=== PATIENT | female | born 1980 | race Caucasian/White ===

== ENCOUNTER 2019-02-22 09:12 | Emergency (ER) | payer OTHER ==
[2019-02-22] MEDS ORDERED: Bacitracin Zinc 1 Packet ONE (09:21)
[2019-02-22] MEDS ORDERED: Lidocaine 1% 20 ML MDV ONE (09:21)
[2019-02-22] MEDS ORDERED: Adacel (T-DAP) 0.5 ML SYRINGE ONE (09:21)
== END 2019-02-22 10:05 | disposition home or self-care (01) ==
LOC: SCSER 09:12
DX: S61.217A Laceration without foreign body of left little finger without damage to nail, initial encounter (principal); D50.0 Iron deficiency anemia secondary to blood loss (chronic); Z79.899 Other long term (current) drug therapy; W26.8XXA Contact with other sharp object(s), not elsewhere classified, initial encounter
CPT/HCPCS: 12001; 90471; 90715; J2001

== ENCOUNTER 2019-08-24 10:18 | Outpatient (CLI) | payer OTHER ==
--- NOTE | 2019-08-24 11:25 | RAD ---
AP PELVIS: HISTORY: Back pain. FINDINGS: Bony pelvis is unremarkable. Both hips are unremarkable. An IUD overlies the mid pelvis. IMPRESSION: No acute finding. POS: [facility]
--- NOTE | 2019-08-24 11:32 | RAD ---
SUPINE ABDOMEN: HISTORY: Back pain. Abdominal pain. FINDINGS: The bowel gas pattern is unremarkable. There is scattered stool and gas in the colon. Small bowel gas pattern is normal. IUD overlies the mid pelvis. There is a focal density overlying the right upper quadrant. This is obscured by overlying stool but could potentially represent a gallstones. Recommend clinical correlation and consider gallbladder ult rasound as indicated. No other abnormal calcification identified. IMPRESSION: 1. Unremarkable bowel gas pattern. 2. Focal density overlying the right upper quadrant, question gallstone. Correlate clinically. POS: [facility]
--- NOTE | 2019-08-24 11:37 | MMO ---
Bilateral MAMMO Bilat Screen [facility]. CLINICAL HISTORY: Patient is 39 years old and is seen for screening. The patient has the following family history of breast cancer: great grandmother, at age 70. The patient has no personal history of cancer. VIEWS: The views performed were: bilateral craniocaudal with tomosynthesis; bilateral mediolateral oblique with tomosynthesis; and bilateral exaggerated craniocaudal with tomosynthesis. FILMS COMPARED: The present examination has been compared to prior imaging studies performed at [facility] on 05/14/2012 and 05/01/2018. This study has been interpreted with the assistance of computer-aided detection. MAMMOGRAM FINDINGS: The breasts are heterogeneously dense, which could obscure a lesion on mammography. There are no suspicious masses, suspicious calcifications, or new areas of architectural distortion. IMPRESSION: THERE IS NO MAMMOGRAPHIC EVIDENCE OF MALIGNANCY. A ROUTINE FOLLOW-UP MAMMOGRAM IN 1 YEAR IS RECOMMENDED. THE RESULTS OF THIS EXAM WERE SENT TO THE PATIENT. ACR BI-RADS Category 1 - Negative MAMMOGRAPHY NOTE: 1. A negative mammogram report should not delay a biopsy if a dominant of clinically suspicious mass is present. 2. Approximately 10% to 15% of breast cancers are not detected by mammography. 3. Adenosis and dense breasts may obscure an underlying neoplasm. Reported by: ABNER MITCHELL MD Electonically Signed: [id number]
--- NOTE | 2019-08-24 11:37 | RAD ---
Frontal, lateral, and swimmer's lateral view of the thoracic spine: 08/24/2019 COMPARISON: None HISTORY: Pain FINDINGS: No fracture or dislocation. Thoracic pedicles appear intact on frontal imaging. Vertebral b ruby height and alignment appears normal within the thoracic spine on the lateral view. The cervicothoracic junction appears unremarkable on the provided swimmer's view. Frontal imaging demonstrates a minimal degree of upper thoracic spine levoscoliosis. IMPRESSION: No acute osseous abnormality.
--- NOTE | 2019-08-24 11:40 | RAD ---
LUMBAR SPINE 3 VIEWS: HISTORY: Low back pain. FINDINGS: The lumbar vertebrae maintain height. There is a grade I anterolisthesis at L5-S1. There is evidenc e of posterior spondylolysis at L5-S1. Alignment above L5 is normally preserved. Disk spaces are maintained. Very mild degenerative spurri ng. Mild facet hypertrophy. IMPRESSION: Grade I spondylolisthesis at L5-S1 with evidence of posterior spondylolysis at this level. Consider CT for confirmation of this posterior spondylolysis. POS: [facility]
== END 2019-08-24 10:19 | disposition home or self-care (01) ==
LOC: BICRAD 10:18
PROVIDERS: ATTEND Internal Medicine
DX: Z12.31 Encounter for screening mammogram for malignant neoplasm of breast (principal); M54.5 Low back pain; R10.9 Unspecified abdominal pain; M43.17 Spondylolisthesis, lumbosacral region; R93.5 Abnormal findings on diagnostic imaging of other abdominal regions, including retroperitoneum; Z80.3 Family history of malignant neoplasm of breast
CPT/HCPCS: 72072; 72100; 72170; 74018; 77063; 77067

== ENCOUNTER 2019-09-10 08:12 | Outpatient (CLI) | payer OTHER ==
--- NOTE | 2019-09-10 10:47 | ULT ---
RIGHT UPPER QUADRANT ULTRASOUND: CLINICAL HISTORY: Pain. FINDINGS: No focal hepatic lesion. Gallbladder is normal in sonographic appearance, and there is a negative Mu rphy's sign. No ascites. Common duct is normal in caliber. Incidental note of a hyperechoic focus of the right kidney, subcentimeter in size. No hydronephrosis of the imaged right kidney. IMPRESSION: 1. No acute gallbladder pathology. 2. Incidental subcentimeter hyperechoic focus of the right kidney without associated hydronephrosis visualized. Correlate clinically. POS: [facility]
== END 2019-09-10 08:13 | disposition home or self-care (01) ==
LOC: SCSULT 08:12
PROVIDERS: ATTEND Physician Assistant Medical
DX: K22.70 Barrett's esophagus without dysplasia (principal); R10.13 Epigastric pain
CPT/HCPCS: 76705

== ENCOUNTER 2019-10-25 11:11 | Outpatient (CLI) | payer OTHER ==
--- NOTE | 2019-10-25 14:23 | NM ---
RADIONUCLIDE HEPATOBILIARY SCAN AND GALLBLADDER EJECTION FRACTION: Date: 10/25/19 HISTORY: Right upper quadrant pain. FINDINGS: Normal uptake throughout the liver. Gallbladder first imaged at 49 minutes. Uptake is evident within the small bowel at 15 minutes. After administration of fatty meal, there is some excretion of radiotr acer from the gallbladder to the small bowel. Ejection fraction calculated at 31%. IMPRESSION: 1. No evidence of acute cholecystitis or biliary obstruction. 2. Abnormal gallbladder ejection fraction. Evidence of chronic gallbladder dyskinesis. POS: [facility]
== END 2019-10-25 11:12 | disposition home or self-care (01) ==
LOC: NM 11:11
PROVIDERS: ATTEND Internal Medicine Gastroenterology
DX: R10.13 Epigastric pain (principal); K82.8 Other specified diseases of gallbladder
CPT/HCPCS: 78227; A9537

== ENCOUNTER 2019-12-08 08:07 | Outpatient (CLI) | payer OTHER ==
[2019-12-08 17:36] LABS: #Basophils 0.1 thou/uL (0.0-0.2); #Eosinphils 0.1 thou/uL (0.0-0.7); #Lymphocytes 2.5 thou/uL (1.20-3.40); #Monocytes 0.5 thou/uL (0.11-0.59); #Neutrophils 2.8 thou/uL (1.40-6.50); %Basophils 1.3 % (0.0-1.0); %Eosinophils 1.6 % (0.0-10.0); %Lymphocytes 42.2 % (21.0-51.0); %Monocytes 7.7 % (0.0-10.0); %Neutrophils 47.1 % (42.0-75.0); Hemoglobin 13.8 g/dL (12.0-16.0); Mean Corpuscular HGB CONC 32.4 g/dL (32.0-36.0); Mean Corpuscular Volume 92.8 fL (78.0-98.0); Mean Platelet Volume 8.7 fL (7.4-10.4); Platelet Count 206 thou/uL (130-400); RBC Distribution Width 11.8 % (11.5-14.5); Red Blood Cell (RBC) Count 4.59 mill/uL (4.20-5.40)
[2019-12-08 17:55] LABS: ALT (SGPT) 14 U/L (8-55); AST (SGOT) 19 U/L (5-34); Albumin 4.6 g/dL (3.5-5.0); Alkaline Phosphatase 65 U/L (40-110); Anion Gap 11 mmol/L (10-20); BUN (Urea Nitrogen) 9 mg/dL (7.0-18.7); Bilirubin, Total 0.5 mg/dL (0.2-1.2); Calc. Creatinine Clearance 0 mL/min (70-130); Calcium 9.5 mg/dL (7.8-10.44); Carbon Dioxide 29 mmol/L (22-29); Chloride 105 mmol/L (98-107); Estimated GFR-MDRD 88; Globulin 2.8 g/dL (2.4-3.5); Glucose 85 mg/dL (70-105); Potassium 3.9 mmol/L (3.5-5.1); Protein, Total 7.4 g/dL (6.0-8.3); Sodium 141 mmol/L (136-145)
== END 2019-12-08 08:08 | disposition home or self-care (01) ==
LOC: LABBT 08:07
PROVIDERS: ATTEND Surgery
DX: Z01.812 Encounter for preprocedural laboratory examination (principal); K82.8 Other specified diseases of gallbladder
CPT/HCPCS: 80053; 85025

== ENCOUNTER 2019-12-09 08:17 | Day surgery (SDC) | payer OTHER ==
[2019-12-08 17:10] VITALS: BMI 23.6
[2019-12-09] MEDS ORDERED: Scopolamine 1.5 mg/72 hour Patch ONE (09:09)
[2019-12-09] MEDS ORDERED: Lidocaine 1% w/Epinephrine 1:100K 20 ML VIAL ONE (09:37)
[2019-12-09] MEDS ORDERED: Bupivacaine PF 0.5% 30 ML VIAL ONE (09:37)
[2019-12-09] MEDS ORDERED: Fentanyl 100 MCG/2 ML VIAL ONE ×3 (09:45→12:04)
[2019-12-09] MEDS ORDERED: Midazolam HCl 2 mg/2 ml Vial ONE (09:45)
[2019-12-09] MEDS ORDERED: HYDROmorphone 0.5 MG/0.5 ML SYRINGE ONE (09:45)
[2019-12-09] MEDS ORDERED: Promethazine HCl 25 MG/ML VIAL SLOW IVP PRN (10:30)
[2019-12-09] MEDS ORDERED: HYDROmorphone 2 MG/ML VIAL SLOW IVP PRN (10:30)
[2019-12-09] MEDS ORDERED: Meperidine HCl/PF 25 MG/ML VIAL SLOW IVP PRN (10:30)
[2019-12-09] MEDS ORDERED: Promethazine HCl 25 MG/ML VIAL ONE (11:05)
[2019-12-09] MEDS ORDERED: Glycopyrrolate 0.2 MG/ML 5 ML SYRINGE ONE (11:08)
[2019-12-09] MEDS ORDERED: Ondansetron PF 4 MG/2 ML Vial ONE (11:08)
[2019-12-09] MEDS ORDERED: PROPOFOL 200 MG/20 ML VIAL ONE (11:08)
[2019-12-09] MEDS ORDERED: Lidocaine 1% PF 5 ML VIAL ONE (11:08)
[2019-12-09] MEDS ORDERED: Ketorolac Tromethamine 30 MG/ML VIAL ONE (11:08)
[2019-12-09] MEDS ORDERED: Dexamethasone 20 MG/5 ML VIAL ONE (11:08)
[2019-12-09] MEDS ORDERED: Rocuronium Bromide 10 MG/ML (10ML VIAL) ONE (11:08)
--- NOTE | 2019-12-09 11:08 | OP ---
DATE OF PROCEDURE: 12/09/2019 PREOPERATIVE DIAGNOSIS: Biliary dyskinesia. POSTOPERATIVE DIAGNOSIS: Biliary dyskinesia. PROCEDURE PERFORMED: Laparoscopic cholecystectomy. ANESTHESIA: General. ESTIMATED BLOOD LOSS: Minimal. COMPLICATIONS: None. SPECIMEN: Gallbladder. FINDINGS: Small umbilical hernia fixed at the time of umbilical incision. PROCEDURE IN DETAIL: The patient was taken to the operating room and laid supine on the operating room table. After general anesthetic was obtained, the abdomen was prepped and draped in a sterile fashion. A curved incision was made below the umbilicus. Cautery was used to dissect down to the umbilical fascia. Umbilical fascia was incised and held up using a Ijn. The abdominal cavity was entered using a Leonor clamp. Holding stitch of Vicryl was placed on each side of the fascia. López trocar was placed. High-flow pneumoperitoneum was obtained. An upper midline 5 mm port and 2 right upper quadrant 5 mm ports were placed under direct camera visualization. The gallbladder was retracted from the gallbladder fossa. The peritoneum of the gallbladder was opened anteriorly and posteriorly. The critical view triangle was seen showing only the cystic duct and cystic artery branching from medial to lateral. There were no other branching structures. Two clips were placed proximally on the cystic duct and one laterally. It was cut using laparoscopic scissors. The cystic artery was taken in the same way. Electrocautery was then used to dissect the gallbladder out of the gallbladder fossa. The gallbladder was placed in an Endo catch bag and brought out through the López. There was no bleeding or bile in the liver bed. The cystic duct stump and cystic artery stump were intact, without evidence of extravasation or bleeding. All port sites were infiltrated using local anesthesia. All ports were removed under camera visualization. Pneumoperitoneum was let down. The Vicryl was used to close the fascial defect below the umbilicus. All incisions were irrigated and closed using 4-0 Monocryl and Dermabond. The patient was en route to Recovery in stable condition. All instrument counts, needle counts and lap counts were correct. Job ID: [id number]
[2019-12-09] MEDS ORDERED: HYDROcodone/Acetaminophen 5/325 mg Tablet ONE (12:49)
== END 2019-12-09 13:50 | disposition home or self-care (01) ==
LOC: SDC 08:17
PROVIDERS: ATTEND Surgery
PROC: 0FT44ZZ Resection of Gallbladder, Percutaneous Endoscopic Approach (ICD-10-PCS; principal; 2019-12-09)
DX: K82.8 Other specified diseases of gallbladder (principal); K81.1 Chronic cholecystitis; K42.9 Umbilical hernia without obstruction or gangrene; Z79.899 Other long term (current) drug therapy
CPT/HCPCS: 88304; J0690; J1100; J1170; J1885; J2001; J2250; J2405; J2550; J2704; J3010; S0020

== ENCOUNTER 2020-08-29 14:25 | Outpatient (CLI) | payer BC ==
--- NOTE | 2020-08-29 15:00 | RAD ---
PA AND LATERAL VIEWS CHEST: Date: 08/29/2020 HISTORY: Melanoma. Right upper chest pain. FINDINGS: No previous chest radiographs are available for comparison. The heart size is normal. The lungs are expanded with a 2.5 cm mass-like focal density in the right l ower lung. No pneumothoraces or pleural effusions are seen. No lobar consolidation identified. IMPRESSION: Right basilar lung nodule. The possibility of malignancy should be considered. Further evaluation wit h contrast enhanced CT scan of the chest is recommended. CODE T. CODE LN.
== END 2020-08-29 14:26 | disposition home or self-care (01) ==
LOC: BICRAD 14:25
DX: D03.61 Melanoma in situ of right upper limb, including shoulder (principal); R91.1 Solitary pulmonary nodule
CPT/HCPCS: 71046

== ENCOUNTER 2020-08-30 13:47 | Outpatient (CLI) | payer BC ==
[~2020-08-30 13:47] MED LIST: Iopamidol 370 76% 100 ML VIAL ONE
--- NOTE | 2020-08-30 15:00 | CT ---
CT chest with IV contrast HISTORY: Lung nodule. Abnormal radiograph. Infiltrate. COMPARISON: 05/29/2020 CT abdomen exam FINDINGS: Centered within the lateral basilar segment of the right lower lobe is an irregular shaped area of infiltrate-like opacity measuring up to 5.7 cm length by 2.6 cm width on the axial images. The size and appearance are unchanged from the CT abdomen 05/29/2020. No other areas of infiltrate or nodule are evident. No pleural fluid or mediastinal adenopathy. Within the partially visualized upper abdomen, the gallbladder surgically absent. Tiny nonspecific cy stic lesions are noted within the liver. IMPRESSION : Right lower lobe infiltrate is unchanged from the 05/29/2020 CT abdomen exam. No focal mass. An pneumo eveline/inflammatory process should have improved significantly over the three-month interval. Possibly an atypical infection? Please consider pulmonary medicine evaluation.
== END 2020-08-30 13:48 | disposition home or self-care (01) ==
LOC: CT 13:47
PROVIDERS: ATTEND Internal Medicine
DX: R91.8 Other nonspecific abnormal finding of lung field (principal)
CPT/HCPCS: 71260; Q9967

== ENCOUNTER 2020-09-01 08:17 | Outpatient (CLI) | payer BC ==
--- NOTE | 2020-09-01 11:03 | PET ---
PET SCAN WITH CT ATTENUATION CORRECTION: HISTORY: Abnormal findings on chest CT 08/22/2020 and 05/29/2020. Patient has a history of right upper extremi ty melanoma. TECHNIQUE: PET scan with CT attenuation correction was performed from the skull vertex to the lower extremities following the intravenous administration of 12.2 mCi of technetium 99m-Fluorodeoxyglucose. FINDINGS: Head and neck: No abnormal FDG localization. Chest: No abnormal FDG localization the mediastinum. No abnormal FDG localization in the left or righ t hilum. CT used for attenuation correction suggests a possible nonhypermetabolic right hilar lymph node with a maximum SUV of 1.7. There are subcentimeter nodules in the right upper lobe which are not hypermetabolic. The size of the se nodules is below the imaging threshold criteria for PET imaging. There is persistent opacification along the lateral aspect of the right lower lobe. The degree of opacification has not c hanged since either previous CT. Maximum SUV is 2.3. No abnormal areas of FDG localization in the left lung. Abdomen and pelvis: No abnormal FDG localization in the abdomen or pelvis. CT used for attenuation co rrection demonstrates bilateral renal pelvic calculi and a surgically absent gallbladder. Uterine device is noted. Osseous structures: No abnormal FDG localization. Extremities: No abnormal FDG localization. IMPRESSION: 1. Persistent lung parenchymal changes along the lateral aspect of the left lower lobe without defini te fluorodeoxyglucose avidity. Focal area of inflammation or infection is suspected. As a conservative measure, follow-up CT can be performed in 6 months. 2. There are multiple lung parenchymal nodules in the upper lobe and lower lobe. These nodules are to o small to characterize on PET imaging. These nodules can also be followed up on subsequent CTs. Transcribed Date/Time: 09/01/2020 11:22 AM
== END 2020-09-01 08:18 | disposition home or self-care (01) ==
LOC: PET 08:17
PROVIDERS: ATTEND Internal Medicine
DX: R91.8 Other nonspecific abnormal finding of lung field (principal)
CPT/HCPCS: 78816; A9552

== ENCOUNTER 2020-09-14 16:07 | Outpatient (CLI) | payer BC, OTHER ==
--- NOTE | 2020-09-14 16:42 | MMO ---
Bilateral MAMMO Bilat Screen [facility]. CLINICAL HISTORY: Patient is 40 years old and is seen for screening. The patient has the following family history of breast cancer: great grandmother, at age 70. The patient has no personal history of cancer. VIEWS: The views performed were: bilateral craniocaudal with tomosynthesis and bilateral mediolateral oblique with tomosynthesis. FILMS COMPARED: The present examination has been compared to prior imaging studies performed at [facility] on 05/14/2012, 05/01/2018 and 08/24/2019. This study has been interpreted with the assistance of computer-aided detection. MAMMOGRAM FINDINGS: The breasts are heterogeneously dense, which could obscure a lesion on mammography. There are no suspicious masses, suspicious calcifications, or new areas of architectural distortion. IMPRESSION: THERE IS NO MAMMOGRAPHIC EVIDENCE OF MALIGNANCY. A ROUTINE FOLLOW-UP MAMMOGRAM IN 1 YEAR IS RECOMMENDED. THE RESULTS OF THIS EXAM WERE SENT TO THE PATIENT. ACR BI-RADS Category 1 - Negative MAMMOGRAPHY NOTE: 1. A negative mammogram report should not delay a biopsy if a dominant of clinically suspicious mass is present. 2. Approximately 10% to 15% of breast cancers are not detected by mammography. 3. Adenosis and dense breasts may obscure an underlying neoplasm. Reported by: IHSAN CHAPIN MD Electonically Signed: [id number]
== END 2020-09-14 16:08 | disposition home or self-care (01) ==
LOC: BICMAMMO 16:07
PROVIDERS: ATTEND Internal Medicine
DX: Z12.31 Encounter for screening mammogram for malignant neoplasm of breast (principal); Z80.3 Family history of malignant neoplasm of breast
CPT/HCPCS: 77063; 77067

== ENCOUNTER 2021-03-20 10:03 | Outpatient (CLI) | payer BC | END 2021-03-20 10:04 | disposition home or self-care (01) | LOC: BICCT 10:03 | PROVIDERS: ATTEND Internal Medicine Critical Care Medicine | DX: R91.1 Solitary pulmonary nodule (principal); N20.0 Calculus of kidney; K76.9 Liver disease, unspecified | CPT/HCPCS: 71250 ==

== ENCOUNTER 2021-11-29 13:27 | Outpatient (CLI) | payer BC | END 2021-11-29 13:28 | disposition home or self-care (01) | LOC: CT 13:27 | PROVIDERS: ATTEND Internal Medicine Critical Care Medicine | DX: R91.8 Other nonspecific abnormal finding of lung field (principal) | CPT/HCPCS: 71250 ==

== ENCOUNTER 2022-12-23 15:06 | Outpatient (CLI) | payer BC | END 2022-12-23 15:07 | disposition home or self-care (01) | LOC: BICCT 15:06 | PROVIDERS: ATTEND Internal Medicine Critical Care Medicine | DX: R91.8 Other nonspecific abnormal finding of lung field (principal) | CPT/HCPCS: 71250 ==

== ENCOUNTER 2023-01-01 11:59 | Outpatient (CLI) | payer BC | END 2023-01-01 12:00 | disposition home or self-care (01) | LOC: BICRAD 11:59 | PROVIDERS: ATTEND Internal Medicine | DX: M54.9 Dorsalgia, unspecified (principal); M47.816 Spondylosis without myelopathy or radiculopathy, lumbar region | CPT/HCPCS: 72100; 72170 ==

== ENCOUNTER 2023-03-05 14:33 | Outpatient (CLI) | payer BC | END 2023-03-05 14:34 | disposition home or self-care (01) | LOC: TBSIIMAG 14:33 | PROVIDERS: ATTEND Neurological Surgery | DX: M47.26 Other spondylosis with radiculopathy, lumbar region (principal); M43.9 Deforming dorsopathy, unspecified; M47.817 Spondylosis without myelopathy or radiculopathy, lumbosacral region; M47.815 Spondylosis without myelopathy or radiculopathy, thoracolumbar region | CPT/HCPCS: 72100; 72148 ==

== ENCOUNTER 2023-12-08 12:44 | Outpatient (CLI) | payer BC | END 2023-12-08 12:45 | disposition home or self-care (01) | LOC: SCSCT 12:44 | PROVIDERS: ATTEND Internal Medicine Critical Care Medicine | DX: R93.89 Abnormal findings on diagnostic imaging of other specified body structures (principal) | CPT/HCPCS: 71250 ==

== ENCOUNTER 2024-08-18 14:55 | Outpatient (CLI) | payer BC | END 2024-08-18 14:56 | disposition home or self-care (01) | LOC: BICRAD 14:55 | PROVIDERS: ATTEND Internal Medicine Rheumatology | DX: R76.8 Other specified abnormal immunological findings in serum (principal); R59.0 Localized enlarged lymph nodes; M25.50 Pain in unspecified joint; J32.9 Chronic sinusitis, unspecified; R91.1 Solitary pulmonary nodule; M13.80 Other specified arthritis, unspecified site | CPT/HCPCS: 71046; 72202 ==

== ENCOUNTER 2025-08-16 08:50 | Outpatient (CLI) | payer BC | END 2025-08-16 08:51 | disposition home or self-care (01) | LOC: SCSBT 08:50 | PROVIDERS: ATTEND Obstetrics & Gynecology | DX: Z78.0 Asymptomatic menopausal state (principal); M85.89 Other specified disorders of bone density and structure, multiple sites | CPT/HCPCS: 77080 ==